=== PATIENT | female | born 1970 | race Caucasian/White ===

== ENCOUNTER 2016-03-31 04:27 | Observation (INO) | payer SELFPAY ==
[~2016-03-31] VITALS: Ht 152.4 cm; Wt 74.0 kg
[~2016-03-31 04:27] MED LIST: IBUP-232 PO
[2016-03-31 04:50] VITALS: BP 180/91; PULSE 104; RESP 20; TEMP 97.8; O2SAT 100
[2016-03-31] MEDS ORDERED: SODIUM CHLOR 0.9% 1000 ML INJ 1,000 ML IV SCH ×4 (04:50→06:31)
[2016-03-31 04:55] VITALS: O2SAT 97
--- NOTE | 2016-03-31 04:55 | PD ---
HPI Chief Complaint: Abdominal Pain Time Seen by Provider: 04:46 Travel History International Travel<30 days: No Contact w/Intl Traveler<30days: No Traveled to known affect area: No History of Present Illness HPI The patient is a 45-year-old female with a history of gastritis who complains of midline epigastric pain and vomiting for 3 days. She denies vomiting any blood. She denies any black or bloody stools. She does not smoke. She does not drink alcohol or take aspirin. It is been at least several months since she took any Motrin for her neck pain. She has been taking mostly Tylenol. She denies any fever. She states her pain in the epigastrium as a 10 over 10 and is sharp and burning. PFSH Past Medical History Hx Anticoagulant Therapy: No Cancer: No Cardiovascular Problems: No High Cholesterol: Yes Chemotherapy: No Cerebrovascular Accident: No Diabetes: No Diminished Hearing: No Endocrine: No Gastrointestinal Disorders: No Genitourinary: No Implanted Vascular Access Dvce: No Musculoskeletal: Yes Neurologic: Yes Psychiatric: No Reproductive: No Respiratory: No Immunizations Current: No Migraines: Yes (PATIENT STATES MIGRAINES ) Menopausal: Yes : 2 Para: 2 Tubal Ligation: Yes Past Surgical History Hysterectomy: No Other Surgery: Yes Social History Alcohol Use: Yes (OCCASIONALY) Tobacco Use: No (QUIT 5 YRS AGO) Substance Use: No Allergies-Medications (Allergen,Severity, Reaction): Coded Allergies: *MDRO Multi-Drug Resistant Organism (Unverified Adverse Reaction, Unknown , 03/31/16) MRSA (arm wound) - 03/2014 Reported Meds & Prescriptions Reported Meds & Active Scripts Active No Active Prescriptions or Reported Medications Review of Systems Except as stated in HPI: all other systems reviewed are Neg Physical Exam Narrative GENERAL: The patient is alert, oriented 3 in moderate apparent distress with her vomiting and epigastric pain. Her vital signs show blood pressure 180/91 with a pulse rate of 104 and respirations 22 but otherwise normal. SKIN: Warm and dry. HEAD: Atraumatic. Normocephalic. EYES: Pupils equal and round. No scleral icterus. No injection or drainage. ENT: No nasal bleeding or discharge. Mucous membranes pink and moist. NECK: Trachea midline. No JVD. CARDIOVASCULAR: Regular rate and rhythm. No murmur appreciated. RESPIRATORY: No accessory muscle use. Clear to auscultation. Breath sounds equal bilaterally. GASTROINTESTINAL: Abdomen soft, with tenderness to direct palpation in the midline epigastrium, nondistended. Hepatic and splenic margins not palpable. No guarding or rebound is present. MUSCULOSKELETAL: No obvious deformities. No clubbing. No cyanosis. No edema. NEUROLOGICAL: Awake and alert. No obvious cranial nerve deficits. Motor grossly within normal limits. Normal speech. PSYCHIATRIC: Appropriate mood and affect except that the patient is slightly anxious; insight and judgment normal. Data Data Last Documented VS Vital Signs Date Time Temp Pulse Resp B/P Pulse Ox O2 Delivery O2 Flow Rate FiO2 03/31/16 05:25 82 18 167/83 97 Room Air 03/31/16 04:50 97.8 Orders Complete Blood Count With Diff (03/31/16 04:50) Comprehensive Metabolic Panel (03/31/16 04:50) Lipase (03/31/16 04:50) Urinalysis - C+S If Indicated (03/31/16 04:50) Iv Access Insert/Monitor (03/31/16 04:50) Ecg Monitoring (03/31/16 04:50) Oximetry (03/31/16 04:50) Morphine Inj (Morphine Inj) (03/31/16 05:00) Ondansetron Inj (Zofran Inj) (03/31/16 05:00) Pantoprazole Inj (Protonix Inj) (03/31/16 05:00) Sodium Chlor 0.9% 1000 Ml Inj (Ns 1000 M (03/31/16 04:50) Sodium Chloride 0.9% Flush (Ns Flush) (03/31/16 05:00) Electrocardiogram (03/31/16 04:50) Famotidine Inj (Pepcid Inj) (03/31/16 05:00) Al-Mag Hy-Si 40-40-4 Mg/Ml Liq (Mag-Al P (03/31/16 05:00) Lidocaine 2% Viscous (Xylocaine 2% Visco (03/31/16 05:00) Sodium Chlor 0.9% 1000 Ml Inj (Ns 1000 M (03/31/16 05:00) Ondansetron Inj (Zofran Inj) (03/31/16 05:30) Ondansetron Inj (Zofran Inj) (03/31/16 05:45) Sodium Chlor 0.9% 1000 Ml Inj (Ns 1000 M (03/31/16 05:45) Oxycodone-Acetamin 7.5-325 Mg (Percocet (03/31/16 06:15) Labs Laboratory Tests Test 03/31/16 03/31/16 04:55 05:05 White Blood Count 16.0 TH/MM3 Red Blood Count 4.34 MIL/MM3 Hemoglobin 8.8 GM/DL Hematocrit 29.3 % Mean Corpuscular Volume 67.5 FL Mean Corpuscular Hemoglobin 20.2 PG Mean Corpuscular Hemoglobin 30.0 % Concent Red Cell Distribution Width 19.3 % Platelet Count 446 TH/MM3 Mean Platelet Volume 7.1 FL Neutrophils (%) (Auto) 75.4 % Lymphocytes (%) (Auto) 14.6 % Monocytes (%) (Auto) 8.4 % Eosinophils (%) (Auto) 1.4 % Basophils (%) (Auto) 0.2 % Neutrophils # (Auto) 12.2 TH/MM3 Lymphocytes # (Auto) 2.3 TH/MM3 Monocytes # (Auto) 1.3 TH/MM3 Eosinophils # (Auto) 0.2 TH/MM3 Basophils # (Auto) 0.0 TH/MM3 CBC Comment AUTO DIFF Differential Comment AUTO DIFF CONFIRMED Platelet Estimate NORMAL Platelet Morphology Comment NORMAL Ovalocytes 2+ Sodium Level 140 MEQ/L Potassium Level 3.9 MEQ/L Chloride Level 105 MEQ/L Carbon Dioxide Level 28.2 MEQ/L Anion Gap 7 MEQ/L Blood Urea Nitrogen 12 MG/DL Creatinine 0.99 MG/DL Estimat Glomerular Filtration 61 ML/MIN Rate Random Glucose 110 MG/DL Calcium Level 8.8 MG/DL Total Bilirubin 0.6 MG/DL Aspartate Amino Transf 139 U/L (AST/SGOT) Alanine Aminotransferase 72 U/L (ALT/SGPT) Alkaline Phosphatase 96 U/L Total Protein 7.9 GM/DL Albumin 3.7 GM/DL Lipase 322 U/L Urine Collection Type CLEAN CATCH Urine Color YELLOW Urine Turbidity CLEAR Urine pH 6.5 Urine Specific [place] 1.011 Urine Protein NEG mg/dL Urine Glucose (UA) NEG mg/dL Urine Ketones NEG mg/dL Urine Occult Blood TRACE Urine Nitrite NEG Urine Bilirubin NEG Urine Leukocyte Esterase NEG Urine RBC 0-3 /hpf Urine WBC 0-2 /hpf Urine Squamous Epithelial 0-5 /hpf Cells Urine Mucus RARE /lpf Microscopic Urinalysis Comment CULT NOT INDICATED MDM Medical Decision Making Medical Screen Exam Complete: Yes Emergency Medical Condition: Yes Medical Record Reviewed: Yes Interpretation(s) The urine shows trace occult blood but is otherwise normal and culture is not indicated. The CBC shows a white count of 16,000 with a hemoglobin of 8.8 and hematocrit of 29.3 and 75% neutrophils. The CBC is otherwise unremarkable. The complete metabolic profile shows a GFR of 61, AST of 139, ALT of 72 but is otherwise normal. The lipase is 322. EKG shows sinus rhythm with a rate of [address] changes but otherwise is normal. Differential Diagnosis Gastritis, gastroparesis, gastroenteritis, dehydration, electrolyte imbalance, renal insufficiency, anemia, pancreatitis, colitis Narrative Course Appears to have a gastritis. The diarrhea has been minimal and her stools are actually hard now. The 8.8 hemoglobin is actually an increase from a hemoglobin done in 2014 which was 8.1. It is now 0616 and the patient still has nausea and has been given 12 mg of Zofran IV. It is now 0630 and the nausea has subsided but the patient still has epigastric pain. She has no doctor to follow-up with and she has no insurance. She remains uncomfortable with her epigastric pain. She will be admitted for 23 hour observation, this should be enough time for her symptoms to resolve and her stomach recover. She just now urinated after having had 2 L of saline. She is to be fairly well-hydrated at this time. Diagnosis Primary Impression: Gastritis Additional Impressions: Mild dehydration Epigastric pain Admitting Information Admitting Physician Requests: Observation Scripts No Active Prescriptions or Reported Meds Leland Mondragon MD Mar 31, 2016 04:55
[2016-03-31] MEDS ORDERED: PANTOPRAZOLE SODIUM 40 MG VIAL IVP ONE (05:00)
[2016-03-31] MEDS ORDERED: MORPHINE SULFATE 4 MG/ML INJ IV PUSH ONE (05:00)
[2016-03-31] MEDS ORDERED: ALUMINUM/MAGNESIUM/SIMETH 30 ML CUP PO ONE (05:00)
[2016-03-31] MEDS ORDERED: LIDOCAINE VISCOUS 2% SOLN 15 ML UDC PO ONE (05:00)
[2016-03-31] MEDS ORDERED: SODIUM CHLORIDE 0.9% FLUSH 5 ML FLUSH IVF PRN (05:00)
[2016-03-31] MEDS ORDERED: ONDANSETRON HCL 4 MG/2 ML VIAL IVP ONE (05:00)
[2016-03-31] MEDS ORDERED: FAMOTIDINE 20 MG/2 ML VIAL IV PUSH ONE (05:00)
[2016-03-31 05:03] LABS: AUTOMATED NEUTROPHIL # 12.2 TH/MM3 (1.8-7.7); BASOPHIL % 0.2 % (0.0-2.0); EOSINOPHIL # 0.2 TH/MM3 (0-0.4); EOSINOPHIL % 1.4 % (0.0-4.0); HEMATOCRIT 29.3 % (35.0-46.0); HEMO FLAGS AUTO DIFF; LYMPH % 14.6 % (9.0-44.0); LYMPHOCYTE # 2.3 TH/MM3 (1.0-4.8); MEAN CELL VOLUME 67.5 FL (80.0-100.0); MEAN CORPUSCULAR HEMOGLOBIN 20.2 PG (27.0-34.0); MONO % 8.4 % (0.0-8.0); NEUT % 75.4 % (16.0-70.0); PLATELET COUNT 446 TH/MM3 (150-450); RED BLOOD COUNT 4.34 MIL/MM3 (4.00-5.30); RED CELL DISTRIBUTION WIDTH 19.3 % (11.6-17.2)
[2016-03-31 05:14] LABS: CHLORIDE 105 MEQ/L (98-107); POTASSIUM 3.9 MEQ/L (3.5-5.1); SODIUM (NA) 140 MEQ/L (136-145)
[2016-03-31 05:20] LABS: ANION GAP 7 MEQ/L (5-15); BICARBONATE 28.2 MEQ/L (21.0-32.0); BLOOD UREA NITROGEN 12 MG/DL (7-18)
[2016-03-31 05:23] LABS: ALT (GPT) 72 U/L (10-53); AST (GOT) 139 U/L (15-37); GLOMERULAR FILTRATION RATE 61 ML/MIN (>89)
[2016-03-31 05:24] LABS: TOTAL BILIRUBIN ADULT 0.6 MG/DL (0.2-1.0)
[2016-03-31 05:25] VITALS: BP 167/83; PULSE 82; RESP 18; O2SAT 97
[2016-03-31 05:26] LABS: ALKALINE PHOSPHATASE 96 U/L (45-117)
[2016-03-31 05:27] LABS: BLOOD, URINE TRACE (NEG); GLUCOSE,URINE NEG (NEG); KETONE, URINE NEG (NEG); NITRITE,URINE NEG (NEG); PH, URINE 6.5 (5.0-8.5)
[2016-03-31] MEDS ORDERED: ONDANSETRON HCL 4 MG/2 ML VIAL IV ONE ×2 (05:30→05:45)
[2016-03-31 05:34] LABS: METHOD OF COLLECTION CLEAN CATCH; URINE COLOR YELLOW (YELLW/STRAW)
[2016-03-31 05:35] LABS: RBC, URINE 0-3 /hpf (0-3); SQUAMOUS EPITHELIAL CELL URINE 0-5 /hpf (0-5)
[2016-03-31 05:36] LABS: COMMENT (UR) CULT NOT INDICATED; CULTURE IF INDICATED CULT NOT INDICATED; MUCUS URINE RARE /lpf (OCC); WBC, URINE 0-2 /hpf (0-5)
[2016-03-31 05:53] LABS: OVALOCYTES 2+ (NORMAL); PLATELET ESTIMATE SMEAR NORMAL (NORMAL); PLATELET MORPHOLOGY NORMAL (NORMAL); SCAN/DIFF AUTO DIFF CONFIRMED
[2016-03-31] MEDS ORDERED: oxyCODONE/ACETAMINOPHEN 7.5 MG/325 MG TAB PO ONE (06:15)
[2016-03-31 06:38] VITALS: BP 159/101; PULSE 76; RESP 20; O2SAT 99
[2016-03-31] MEDS ORDERED: METOCLOPRAMIDE HCL 10 MG/2 ML VIAL IV PUSH PRN (06:45)
[2016-03-31] MEDS ORDERED: ONDANSETRON HCL 4 MG/2 ML VIAL IVP PRN (06:45)
[2016-03-31] MEDS ORDERED: SODIUM CHLORIDE 0.9% FLUSH 5 ML FLUSH FLUSH PRN ×3 (06:45)
[2016-03-31] MEDS ORDERED: NALOXONE HCL 0.4 MG/ML AMP IV PRN ×3 (06:45)
[2016-03-31] MEDS ORDERED: DIATRIZOATE MEGLUM/DIATRIZOATE SOD 9 ML CUP ONE (07:19)
[2016-03-31] MEDS ORDERED: ENOXAPARIN SODIUM 30 MG/0.3 ML SYRINGE SQ SCH (08:00)
[2016-03-31 08:54] VITALS: BP 125/76; PULSE 63; RESP 18; TEMP 97.2; O2SAT 99
--- NOTE | 2016-03-31 08:55 | RADHPO ---
EXAM DATE/TIME: 03/31/2016 08:12 [facility] COMPARISON: CT ABDOMEN & PELVIS W CONTRAST, November 26, 2014, 1:04. INDICATIONS : Epigastric pain. ORAL CONTRAST: Prescribed oral contrast ingested. RADIATION DOSE: 15.10 CTDIvol (mGy) MEDICAL HISTORY : Gastritis. SURGICAL HISTORY : Tubal ligation. ENCOUNTER: Initial ACUITY: 3 days PAIN SCALE: 0/10 LOCATION: Upper quadrant TECHNIQUE: Volumetric scanning of the abdomen and pelvis was performed. Using automated exposure control and ad justment of the mA and/or kV according to patient size, radiation dose was kept as low as reasonably achievable to obtain optimal diagnostic quality images. FINDINGS: The lung bases are clear. There is no pericardial effusion. Liver and spleen are unremarkable. Pancreas appears normal. Adrenal glands are unremarkable. Right and left kidneys appear normal. There is no ascites or adenopathy appreciated. Region of the cecum and terminal ileum are unremarkable. In the pelvis, cystic areas are seen in the adnexa involving both adnexa and uterus. These have prog ressed in size from the comparison study. Bladder is unremarkable. There is no free fluid. CONCLUSION: 1. Abnormal uterus and adnexa with multiple septated cystic masses seen associated with the uterus an d adnexa. 2. There is no free fluid. 3. There is no renal stone. Collin Reynaga MD FACR on March 31, 2016 at 8:36 Board Certified Radiologist. This report was verified electronically.
[2016-03-31] MEDS ORDERED: SODIUM CHLORIDE 0.9% FLUSH 5 ML FLUSH FLUSH SCH ×3 (09:00)
[2016-03-31] MEDS ORDERED: DIATRIZOATE MEGLUM/DIATRIZOATE SOD 9 ML CUP PO ONE (10:30)
--- NOTE | 2016-03-31 11:04 | HHI.HP ---
[facility] Primary Care Physician No Primary Care Physician Admission Diagnosis gastritis Diagnoses: (1) Epigastric pain Diagnosis: Principal (2) Nausea & vomiting Diagnosis: Principal (3) Leukocytosis Diagnosis: Principal (4) Elevated liver enzymes Diagnosis: Principal Chief Complaint: Abdominal pain, nausea vomiting Travel History International Travel<30 Days: No Contact w/Intl Traveler <30 Da: No Traveled to Known Affected Are: No History of Present Illness 45-year-old female with known history of hyperlipidemia presented to hospital because of epigastric pain, nausea vomiting. Patient states that for the last 3 days she developed epigastric discomfort with associated nausea, vomiting. She denies any chest pain, shortness of breath, dyspnea, diarrhea, constipation, melena, hematochezia, hematocrit emesis. Patient states that since the pain persisted for 3 days she came to emergency department for evaluation. Patient was given Zofran with relief of her nausea. She no longer had any vomiting. Her abdominal pain resolved this morning and patient is very eager to go home. I notified patient of CT findings, laboratory studies and she is aware. Patient states that there has not been any change in her medical history, surgical history since last time she is admitted in 2014 for same symptoms. Review of Systems Constitutional: DENIES: Diaphoretic episodes, Fatigue, Fever, Weight gain, Weight loss, Chills, Dizziness, Change in appetite, Night Sweats Eyes: DENIES: Blurred vision, Diplopia, Eye inflammation, Eye pain, Vision loss , Double Vision Ears, nose, mouth, throat: COMPLAINS OF: Oral lesions, DENIES: Vertigo, Nasal discharge, Throat pain, Ear Pain, Running Nose, Sinus Pain Respiratory: DENIES: Apneas, Cough, Snoring, Wheezing, Hemoptysis, Sputum production, Shortness of breath Cardiovascular: DENIES: Chest pain, Palpitations, Syncope, Dyspnea on Exertion , Lower Extremity Edema, Orthopnea Gastrointestinal: COMPLAINS OF: Abdominal pain, Nausea, Vomiting, DENIES: Black stools, Bloody stools, Constipation, Diarrhea, Difficulty Swallowing, Anorexia Neurologic: DENIES: Abnormal gait, Headache, Localized weakness, Paresthesias, Seizures, Speech Problems, Tremor, Poor Balance Past Family Social History Past Medical History Hyperlipidemia Past Surgical History Tubal ligation Reported Medications Reported Meds & Active Scripts Active No Active Prescriptions or Reported Medications Allergies: Coded Allergies: *MDRO Multi-Drug Resistant Organism (Unverified Adverse Reaction, Unknown , 03/31/16) MRSA (arm wound) - 03/2014 Family History Reviewed and unremarkable Social History Patient denies any tobacco, alcohol or illicit drugs Physical Exam Vital Signs Vital Signs Date Time Temp Pulse Resp B/P Pulse Ox O2 Delivery O2 Flow Rate FiO2 03/31/16 09:40 18 03/31/16 08:54 97.2 63 18 125/76 99 03/31/16 06:38 76 20 159/101 99 Room Air 03/31/16 05:25 82 18 167/83 97 Room Air 03/31/16 04:55 97 Room Air 03/31/16 04:50 97.8 104 20 180/91 100 Room Air Physical Exam GENERAL: This is a well-nourished, well-developed patient, in no apparent distress. SKIN: No rashes, ecchymoses or lesions. Cool and dry. HEAD: Atraumatic. Normocephalic. No temporal or scalp tenderness. EYES: Pupils equal round and reactive. Extraocular motions intact. No scleral icterus. No injection or drainage. ENT: Nose without bleeding, purulent drainage or septal hematoma. Throat without erythema, tonsillar hypertrophy or exudate. Uvula midline. Airway patent. NECK: Trachea midline. No JVD or lymphadenopathy. Supple, nontender, no meningeal signs. CARDIOVASCULAR: Regular rate and rhythm without murmurs, gallops, or rubs. RESPIRATORY: Clear to auscultation. Breath sounds equal bilaterally. No wheezes , rales, or rhonchi. GASTROINTESTINAL: Abdomen soft, non-tender, nondistended. No hepato-splenomegaly , or palpable masses. No guarding. MUSCULOSKELETAL: Extremities without clubbing, cyanosis, or edema. No joint tenderness, effusion, or edema noted. No calf tenderness. Negative Homans sign bilaterally. NEUROLOGICAL: Awake and alert. Cranial nerves II through XII intact. Motor and sensory grossly within normal limits. Five out of 5 muscle strength in all muscle groups. Normal speech. Laboratory Laboratory Tests Test 03/31/16 03/31/16 04:55 05:05 White Blood Count 16.0 Red Blood Count 4.34 Hemoglobin 8.8 Hematocrit 29.3 Mean Corpuscular Volume 67.5 Mean Corpuscular Hemoglobin 20.2 Mean Corpuscular Hemoglobin 30.0 Concent Red Cell Distribution Width 19.3 Platelet Count 446 Mean Platelet Volume 7.1 Neutrophils (%) (Auto) 75.4 Lymphocytes (%) (Auto) 14.6 Monocytes (%) (Auto) 8.4 Eosinophils (%) (Auto) 1.4 Basophils (%) (Auto) 0.2 Neutrophils # (Auto) 12.2 Lymphocytes # (Auto) 2.3 Monocytes # (Auto) 1.3 Eosinophils # (Auto) 0.2 Basophils # (Auto) 0.0 CBC Comment AUTO DIFF Differential Comment AUTO DIFF CONFIRMED Platelet Estimate NORMAL Platelet Morphology Comment NORMAL Ovalocytes 2+ Sodium Level 140 Potassium Level 3.9 Chloride Level 105 Carbon Dioxide Level 28.2 Anion Gap 7 Blood Urea Nitrogen 12 Creatinine 0.99 Estimat Glomerular Filtration 61 Rate Random Glucose 110 Calcium Level 8.8 Total Bilirubin 0.6 Aspartate Amino Transf 139 (AST/SGOT) Alanine Aminotransferase 72 (ALT/SGPT) Alkaline Phosphatase 96 Total Protein 7.9 Albumin 3.7 Lipase 322 Urine Collection Type CLEAN CATCH Urine Color YELLOW Urine Turbidity CLEAR Urine pH 6.5 Urine Specific [place] 1.011 Urine Protein NEG Urine Glucose (UA) NEG Urine Ketones NEG Urine Occult Blood TRACE Urine Nitrite NEG Urine Bilirubin NEG Urine Leukocyte Esterase NEG Urine RBC 0-3 Urine WBC 0-2 Urine Squamous Epithelial 0-5 Cells Urine Mucus RARE Microscopic Urinalysis Comment CULT NOT INDICATED Result Diagram: 03/31/16 0455 03/31/16 0455 Assessment and Plan Assessment and Plan Epigastric pain with nausea and vomiting: Resolved. Patient was given Zofran emergency department which resolved her nausea and vomiting. Patient was given Percocet with resolution of her pain CT scan does not indicate any acute abnormality. Does show multilobular uterus , which can be followed up outpatient setting Elevated liver enzymes: Mild elevation without any bilirubin elevation, likely secondary to and reactive to nausea vomiting. Actually with improvement from previous studies Leukocytosis: Likely secondary to concentration from reviewing previous labs. Hyperlipidemia: Resume home medications DVT prevention: Low risk, early ambulation Written by Haris Mondragon PA-C, acting as scribe for Dr. Rubin on 2/1/17 at [Time]. The documentation accurately reflects the work and decisions performed face-to- face by Dr. Rubin on 03/31/16 at [Time]. Discharge disposition Discharge home in stable condition Activity: Ad jonna. Diet: Healthy heart diet Medications per medication reconciliation Follow-up primary medical doctor in one week Problem Qualifiers (1) Nausea & vomiting: Qualified Code: R11.2 - Non-intractable vomiting with nausea, unspecified vomiting type (2) Leukocytosis: Qualified Code: D72.829 - Leukocytosis, unspecified type Haris Mondragon Mar 31, 2016 11:04
--- NOTE | 2016-03-31 11:06 | HHI.DCPOC ---
Discharge Care Plan Diagnosis: (1) Epigastric pain (2) Nausea & vomiting Goals to Promote Your Health * To prevent worsening of your condition and complications * To maintain your health at the optimal level Directions to Meet Your Goals Take your medications as prescribed Follow your dietary instruction Follow activity as directed Keep your appointments as scheduled Take your immunizations and boosters as scheduled If your symptoms worsen call your PCP, if no PCP go to Urgent Care Center or Emergency Room Smoking is Dangerous to Your Health. Avoid second hand smoke Call the 24-hour hour crisis hotline for domestic abuse at Haris Mondragon Mar 31, 2016 11:06
[2016-03-31 12:05] VITALS: BP_SYST 110; BP_DIAS 68; BP_DIAS 69; PULSE 60; PULSE 78; RESP 15; RESP 18; TEMP 97.2; TEMP 98.6; O2SAT 99
--- NOTE | 2016-03-31 15:59 | EKG ---
Date Performed: 03/31/2016 Time Performed: 04:43:32 PTAGE: 45 years EKG: Sinus rhythm . Poor R wave progression - probable normal variant Lateral ST changes are nonspecific Compared to pr ior tracing no significant change Borderline ECG PREVIOUS TRACING : 11/25/2014 01.44 DOCTOR: Shane Herring Interpretating Date/Time 03/31/2016 15:56:30
[2016-03-31] MEDS ORDERED: PANTOPRAZOLE SOD 40 MG DELAYED RELEASE TAB PO SCH (21:00)
== END 2016-03-31 13:10 | disposition home or self-care (01) ==
LOC: PHED 04:27 → PHEDA 06:35 → PH3A 08:38
PROVIDERS: ADMIT Family Medicine; ATTEND Family Medicine
DX: K29.70 Gastritis, unspecified, without bleeding (principal); R11.10 Vomiting, unspecified; E78.00 Pure hypercholesterolemia, unspecified; G43.909 Migraine, unspecified, not intractable, without status migrainosus; E86.0 Dehydration; D72.829 Elevated white blood cell count, unspecified; R74.8 Abnormal levels of other serum enzymes; E78.5 Hyperlipidemia, unspecified
CPT/HCPCS: 74176; 80053; 81001; 83690; 85025; 93005; 96361; 96374; 96375; 96376; 99285; C9113; G0378; J1650; J2405; J7030; Q9963

== ENCOUNTER 2016-09-28 20:59 | Emergency (ER) | payer SELFPAY ==
[~2016-09-28] VITALS: Ht 154.9 cm; Wt 75.0 kg
[2016-09-28 21:10] VITALS: BP 163/77; PULSE 83; RESP 18; TEMP 98.5; O2SAT 99
[2016-09-28] MEDS ORDERED: PROCHLORPERAZINE INJ 10 MG/2 ML VIAL IM ONE (21:15)
[2016-09-28] MEDS ORDERED: ONDANSETRON ODT 4 MG TAB PO ONE (21:15)
[2016-09-28] MEDS ORDERED: KETOROLAC TROMETHAMINE 60 MG/2 ML (IM) VIAL IM ONE (21:15)
[2016-09-28 21:21] VITALS: BP 163/77; PULSE 83; RESP 18; TEMP 98.5; O2SAT 99
--- NOTE | 2016-09-28 21:23 | PD ---
HPI Chief Complaint: sanches Time Seen by Provider: 21:13 Travel History International Travel<30 days: No Contact w/Intl Traveler<30days: No Traveled to known affect area: No History of Present Illness HPI patient c/o kirsten sanches, 8/10 intermittent for a week but last episode onset around 4pm...she was driven here and has no c/o photophobia/d/cp/abd pain...however patient is nauseous which is typical as well as pain of her migraines PFSH Past Medical History Hx Anticoagulant Therapy: No Cancer: No Cardiovascular Problems: No High Cholesterol: Yes Chemotherapy: No Cerebrovascular Accident: No Diabetes: No Diminished Hearing: No Endocrine: No Gastrointestinal Disorders: Yes (gastritis) Genitourinary: No Implanted Vascular Access Dvce: No Musculoskeletal: Yes Neurologic: Yes Psychiatric: No Reproductive: No Respiratory: No Immunizations Current: No Migraines: Yes (PATIENT STATES MIGRAINES ) Menopausal: Yes : 2 Para: 2 Tubal Ligation: Yes Past Surgical History Hysterectomy: No Other Surgery: Yes Social History Alcohol Use: Yes (OCCASIONALY) Tobacco Use: No (QUIT 5 YRS AGO) Substance Use: No Allergies-Medications (Allergen,Severity, Reaction): Coded Allergies: *MDRO Multi-Drug Resistant Organism (Unverified Adverse Reaction, Unknown , 09/28/16) MRSA (arm wound) - 03/2014 Reported Meds & Prescriptions Reported Meds & Active Scripts Active Zofran Odt (Ondansetron Odt) 4 Mg Tab 4 Mg SL Q6HR PRN Flexeril (Cyclobenzaprine HCl) 10 Mg Tab 10 Mg PO TID Fioricet (Aldktbhqkz-Bsjzrlaffaphl-Cdyxuite) 50-300-40 Mg Cap 1 Cap PO Q4H PRN Review of Systems Except as stated in HPI: all other systems reviewed are Neg HENT: Positive: Headaches Physical Exam Narrative GENERAL: SKIN: Warm and dry. HEAD: Atraumatic. Normocephalic. posterior scalp is free of any lesions, but it was ttp EYES: Pupils equal and round. No scleral icterus. No injection or drainage. ENT: No nasal bleeding or discharge. Mucous membranes pink and moist, bilateral tm wnl. NECK: Trachea midline. No JVD. CARDIOVASCULAR: Regular rate and rhythm. RESPIRATORY: No accessory muscle use. Clear to auscultation. Breath sounds equal bilaterally. GASTROINTESTINAL: Abdomen soft, non-tender, nondistended. MUSCULOSKELETAL: Extremities without clubbing, cyanosis, or edema. No obvious deformities. NEUROLOGICAL: Awake and alert. No obvious cranial nerve deficits. Motor grossly within normal limits. Five out of 5 muscle strength in the arms and legs. Normal speech. PSYCHIATRIC: Appropriate mood and affect; insight and judgment normal. Data Data Last Documented VS Vital Signs Date Time Temp Pulse Resp B/P Pulse Ox O2 Delivery O2 Flow Rate FiO2 09/28/16 22:03 77 18 99 09/28/16 22:02 158/74 Room Air 09/28/16 21:21 98.5 Orders Ondansetron Odt (Zofran Odt) (09/28/16 21:15) Prochlorperazine Inj (Compazine Inj) (09/28/16 21:15) Ketorolac Inj (Toradol Inj) (09/28/16 21:15) MDM Medical Decision Making Medical Screen Exam Complete: Yes Emergency Medical Condition: Yes Medical Record Reviewed: Yes Differential Diagnosis migraine v tension sanches v shingles Narrative Course patient during examination no lesions to suggest shingles, and typical pain is most consistent with her cervical myofascial pain syndrome which is chronic at this point. will treat breakthrough episode, neurologically intact will not ct head. Diagnosis Primary Impression: headache Scripts Ondansetron Odt (Zofran Odt)4 Mg Tab4 Mg SL Q6HR PRN (Nausea/Vomiting) #12 TAB Prov:Chuck Kuo MD 09/28/16 Cyclobenzaprine (Flexeril)10 Mg Tab10 Mg PO TID #21 TAB Prov:Chuck Kuo MD 09/28/16 Vwwquirrnf-Kyhlvhxhmyyke-Slctafwn (Fioricet)50-300-40 Mg Cap1 Cap PO Q4H PRN ( HEADACHE) #20 CAP Prov:Chuck Kuo MD 09/28/16 Disposition: 01 DISCHARGE HOME Condition: Stable hCuck Kuo MD Sep 28, 2016 21:23
[2016-09-28] MEDS ORDERED: ZOFR4TAB3 SL (21:25)
[2016-09-28] MEDS ORDERED: BUTA1CAP PO (21:25)
[2016-09-28] MEDS ORDERED: CYCL1TAB29 PO (21:25)
[2016-09-28 22:02] VITALS: BP 158/74; PULSE 78; RESP 18; O2SAT 99
== END 2016-09-28 22:04 | disposition home or self-care (01) ==
LOC: PHED 20:59
DX: R51 Headache (principal)
CPT/HCPCS: 96372; 99284; J0780; J1885